=== PATIENT | male | born 1955 | race Caucasian/White ===

== ENCOUNTER 2017-01-21 22:23 | Emergency (ER) | payer OTHER ==
[2017-01-21 22:28] VITALS: BP 168/97
[2017-01-21] MEDS ORDERED: Lidocaine 1% 30 ML SDV INJECT ONE (22:34)
--- NOTE | 2017-01-21 22:37 | EDM.PDOC ---
{null, ED HPI GENERAL MEDICAL PROBLEM - General Chief Complaint: Laceration Stated Complaint: CUT FINGER,[id number] Time Seen by Provider: 01/21/17 22:34 Source of Information: Reports: Patient History Limitations: Reports: No Limitations - History of Present Illness INITIAL COMMENTS - FREE TEXT/NARRATIVE: cut STRATEGIC MANAGER Right 2-Index finger Pain Score (Numeric/FACES): 4 - Related Data Allergies Allergy/AdvReac Type Severity Reaction Status Date / Time No Known Allergies Allergy Verified 01/21/17 22:28 Home Meds: Home Meds Citalopram [Celexa] 20 mg PO DAILY 01/21/17 [History] Omeprazole Magnesium [Prilosec Otc] 20 mg PO DAILY 01/21/17 [History] ED ROS GENERAL - Review of Systems Review Of Systems: ROS reveals no pertinent complaints other than HPI. ED EXAM, SKIN/RASH Exam: See Below Exam Limited By: No Limitations General Appearance: Alert, WD/WN, No Apparent Distress Ears: Hearing Grossly Normal Throat/Mouth: Normal Voice, No Airway Compromise Head: Atraumatic Neck: Non-Tender, Full Range of Motion Respiratory/Chest: No Respiratory Distress Cardiovascular: Regular Rate, Rhythm GI/Abdominal: Soft, Non-Tender Extremities: Other (right index dorsum, NV wnl, rom no problem) Neurological: Alert, Oriented, Normal Cognition, Normal Gait, No Motor/Sensory Deficits Psychiatric: Normal Affect, Normal Mood Skin: Warm, Dry Location, Skin: Upper Extremity, Right ED SKIN PROCEDURES - Laceration/Wound Repair Right Finger Lac/wound length in cm: 1.5 (dorsal right index) Appearance: subcutaneous, linear, clean Distal NVT: neuro & vascular intact, no tendon injury Anesthetic Type: local Local anesthesia - Lidocaine (Xylocaine): 1% plain Skin prep: chlorhexidine (hibiciens) Exploration/Debridement/Repair: wound explored, in a bloodless field, no foreign material found Closed with: sutures Suture size: 3-0 Suture type: interrupted Sterile dressing applied: nurse Tetanus status addressed: Yes Complications: No Course - Vital Signs Last Recorded V/S: Last Vital Signs Temp 36.4 C 01/21/17 22:25 Pulse 81 01/21/17 22:25 Resp 16 01/21/17 22:25 BP 168/97 H 01/21/17 22:25 Pulse Ox 98 01/21/17 22:25 - Orders/Labs/Meds Meds: Medications Discontinued Medications Generic Name Dose Route Start Last Admin Trade Name Kandis PRN Reason Stop Dose Admin Lidocaine HCl 30 ml 01/21/17 22:34 01/21/17 22:38 Xylocaine-Mpf 1% INJECT 01/21/17 22:35 30 ml ONETIME ONE Administration Departure - Departure Time of Disposition: 22:51 Disposition: Home, Self-Care 01 Condition: good Clinical Impression: Finger laceration Qualifiers: Encounter type: initial encounter Qualified Code(s): S61.219A - Laceration without foreign body of unspecified finger without damage to nail, initial encounter - Discharge Information Instructions: Stitches, Alayna, or Adhesive Wound Closure, [id number] Forms: ED Department Discharge Additional Instructions: 1) keep wound clean dry covered 2) wound check Tuesday 3) suture removal 10 days }
== END 2017-01-21 22:54 | disposition home or self-care (01) ==
LOC: DL.ED 22:23
DX: S61.210A Laceration without foreign body of right index finger without damage to nail, initial encounter (principal); Z79.899 Other long term (current) drug therapy; W26.0XXA Contact with knife, initial encounter
CPT/HCPCS: 12001; 99283